=== PATIENT | male | born 1980 | race African-American/Black ===

== ENCOUNTER 2016-09-26 02:43 | Emergency (ER) | payer MEDICAID ==
[~2016-09-26] VITALS: Ht 180.3 cm; Wt 70.0 kg
[~2016-09-26 02:43] MED LIST: MESA0.37 PO
[2016-09-26 02:53] VITALS: BP 113/74
== END 2016-09-26 06:55 | disposition left against medical advice (07) ==
LOC: ER 02:43
DX: R10.9 Unspecified abdominal pain (principal); Z53.21 Procedure and treatment not carried out due to patient leaving prior to being seen by health care provider

== ENCOUNTER 2017-08-15 00:06 | Emergency (ER) | payer MEDICAID ==
[~2017-08-15] VITALS: Ht 180.3 cm; Wt 71.0 kg
[2017-08-15] MEDS ORDERED: SODIUM CHLORIDE 0.9% 1,000 ML IV ONE (01:03)
[2017-08-15] MEDS ORDERED: MORPHINE SULFATE 4 MG/ML CPJ (NOT FOR IM USE) IV STA (01:03)
[2017-08-15] MEDS ORDERED: FAMOTIDINE 20MG/2ML VIAL IV STA (01:03)
[2017-08-15 01:49] LABS: HEMATOCRIT. 36.6 % (42.0-52.0); HEMOGLOBIN. 12.4 g/dL (14.0-18.0); MEAN CORPUSCULAR HEMOGLOBIN 30.9 pg (28.0-32.0); MEAN CORPUSCULAR VOLUME 91.5 fL (80.0-94.0); MEAN PLATELET VOLUME 8.1 fl (7.4-10.4); MONOCYTES % 8.5 % (2.0-8.0); NEUTROPHILS % 55.5 % (40.0-76.0); PLATELET 307 x1000/uL (130-400); RED CELL DISTRIBUTION WIDTH 19.4 % (11.6-14.6)
[2017-08-15 01:50] LABS: CHLORIDE 106 mEq/L (98-107); INR 1.1; PROTHROMBIN TIME 11.9 sec (9.4-11.6)
[2017-08-15 01:53] LABS: ETHANOL BLOOD < 10 mg/dL
[2017-08-15 05:00] VITALS: BP 104/58
== END 2017-08-15 06:07 | disposition home or self-care (01) ==
LOC: ER 00:06
DX: R10.84 Generalized abdominal pain (principal); K50.90 Crohn's disease, unspecified, without complications; R00.1 Bradycardia, unspecified; M19.90 Unspecified osteoarthritis, unspecified site; Z88.5 Allergy status to narcotic agent; Z93.3 Colostomy status
CPT/HCPCS: 36415; 71045; 74176; 80053; 83605; 83690; 83880; 84484; 85025; 85610; 87040; 93005; 96361; 96374; 96375; 99285; G0482; J2270; J3490; J7030; Z7610